=== PATIENT | male | born 1955 | race African-American/Black ===

== ENCOUNTER 2019-03-11 18:38 | Emergency (ER) | payer MEDICARE ==
[~2019-03-11] VITALS: Ht 180.3 cm; Wt 129.3 kg
[2019-03-12] MEDS ORDERED: KETOROLAC TROMETH 60MG/2ML VIAL IM ONE (02:00)
[2019-03-12] MEDS ORDERED: METHOCARBAMOL 500 MG TAB PO ONE (02:00)
[2019-03-12 02:33] VITALS: BP 110/77
== END 2019-03-12 02:46 | disposition home or self-care (01) ==
LOC: EDBD 18:38 → ER 18:45
DX: S30.810A Abrasion of lower back and pelvis, initial encounter (principal); S50.312A Abrasion of left elbow, initial encounter; S50.311A Abrasion of right elbow, initial encounter; M54.5 Low back pain; G89.29 Other chronic pain; V29.49XA Motorcycle driver injured in collision with other motor vehicles in traffic accident, initial encounter; Y93.89 Activity, other specified; Y99.8 Other external cause status; Y92.89 Other specified places as the place of occurrence of the external cause
CPT/HCPCS: 72040; 72100; 73030; 96372; 99283; J1885

== ENCOUNTER 2022-12-05 10:13 | Emergency (ER) | payer MEDICARE, OTHER ==
[~2022-12-05] VITALS: Ht 180.3 cm; Wt 114.3 kg
[2022-12-05 11:08] VITALS: BP 132/66
[2022-12-05] MEDS ORDERED: LORA-622 PO (11:34)
[2022-12-05] MEDS ORDERED: DEXT60TA4 PO (11:34)
== END 2022-12-05 11:36 | disposition home or self-care (01) ==
LOC: ER 10:13
DX: J06.9 Acute upper respiratory infection, unspecified (principal); F32.9 Major depressive disorder, single episode, unspecified; G89.29 Other chronic pain